=== PATIENT | female | born 1950 | race Caucasian/White ===

== ENCOUNTER 2019-10-25 10:45 | Emergency (ER) | payer MEDICARE, OTHER, SELFPAY ==
--- NOTE | 2019-10-25 10:56 | ED_ITS ---
Entered by Claudia Rodrigues, acting as scribe for Jean-Paul Jones DO HPI - Syncope General: Chief Complaint: Syncope Stated Complaint: SYNCOPE Time Seen by Provider: 10/25/19 10:56 Source: patient and EMS Mode of arrival: EMS Limitations: no limitations History of Present Illness: MD complaint: felt faint, collapsed and other (dizziness) Onset (ago): day(s) (3 days ago) Description of event: other (passed out at [facility]) Prodromal symptoms: shortness of breath and other (dizzy) Witnessed: Yes - by Bystander (people at [facility]) Context: during exertion (at [facility]) Injuries sustained associated with event: none Associated symptoms: Reports other (sweating episodes, stress) Treatments prior to arrival: other (ems brought her to ED) Review of Systems General: Reports: 10 or more systems reviewed and unremarkable except in HPI and below Const: Reports: diaphoresis Eyes: Reports: other (dizziness) Card: Reports: syncope Resp: Reports: shortness of breath (with episode) [facility] ED PFSH: Medical History (Updated 10/25/19 @ 13:53 by Jean-Paul Jones DO) Skin cancer Social History Smoking and tobacco status: never smoked Physical Exam Const: COMMON NORMALS: no apparent distress, average body habitus, oriented x3, no limitations, healthy appearing, alert and well nourished HENMT: COMMON NORMALS: normocephalic, head/scalp atraumatic, hearing grossly normal bilaterally, external ears normal, EAC's normal, TM's normal bilaterally, external nose normal, oropharynx normal, dentition normal and gingiva normal HEAD & SCALP: normocephalic and atraumatic NOSE: external nose normal and mucous membranes and turbinates abnormal (dry) EXTERNAL EAR: Yes external ears normal EXTERNAL AUDITORY CANAL: EAC's normal TYMPANIC MEMBRANE: TM's normal bilaterally Eye: COMMON NORMALS: PERRL, EOMs intact bilaterally, conjunctivae normal, no scleral icterus, no papilledema, normal visual barroso by confrontation and fundi normal bilaterally CONJUNCTIVA: Yes conjunctivae normal PUPIL: Yes PERRL DIRECT OPHTHALMOSCOPY: Yes no papilledema and Yes fundi normal bilaterally Neck/C-Spine: COMMON NORMALS: full ROM, no lymphadenopathy, supple, no meningeal signs, no JVD, thyroid normal and no carotid bruits THYROID: thyroid normal Chest: COMMONS NORMALS: inspection of chest normal and palpation of chest normal Resp: COMMON NORMALS: normal respiratory effort, no retractions, no use of accessory muscles, clear to auscultation bilaterally and percussion normal AUSCULTATION: clear to auscultation bilaterally PERCUSSION: percussion normal Cardio: COMMON NORMALS: no JVD, regular rate, regular rhythm, S1 normal heart sound, S2 normal heart sound, no gallops, no clicks, no murmurs, no rub and peripheral pulses 2+ throughout RATE: regular rate RHYTHM: regular rhythm HEART SOUNDS: S1 normal and S2 normal PERIPHERAL PULSES: pulses 2+ throughout GI: COMMON NORMALS: normal to inspection, nondistended, normoactive bowel sounds, soft to palpation, non-tender, no hepatosplenomegaly, no masses and no bruits PALPATION: Yes soft and Yes no hepatosplenomegaly : COMMON NORMALS: Yes no CVA tenderness and Yes external appearance normal BLADDER/KIDNEY EXAM: Yes no CVA tenderness Back/Pelvis: COMMON NORMALS: no CVA tenderness, thoracic and lumbar spine normal to inspection, no thoracic nor lumbar tenderness, thoraco-lumbar ROM normal and straight leg raise negative bilaterally Extremity: COMMON NORMALS: normal to inspection, full ROM, normal capillary refill, no joint enlargement, no clubbing, cyanosis or edema, no calf tenderness and no pedal edema Neuro: COMMON NORMALS: oriented x3 SENSORIUM/ORIENTATION: Yes alert MENINGEAL SIGNS: Yes no meningeal signs Skin: COMMON NORMALS: no rashes or lesions noted, no wounds, skin turgor normal, no jaundice, no petechiae and no mottling GENERAL SKIN EXAM: no rashes or lesions noted and turgor normal Course Vital Signs: Vital signs: Vital Signs Temperature 97.8 F 10/25/19 10:57 Pulse Rate 62 10/25/19 13:18 Respiratory Rate 15 10/25/19 12:00 Blood Pressure 155/93 10/25/19 13:18 Pulse Oximetry 97 10/25/19 13:18 MDM - Syncope Lab Data: Labs: Lab Results 10/25/19 10/25/19 10/25/19 Range/Units 11:28 11:29 11:29 WBC 7.0 (4.0-10.0) 10^3/ uL RBC 4.87 (4.1-5.3) 10^6/u L Hgb 14.0 (11.5-15.3) g/dL Hct 44.8 (37.0-47.0) % MCV 92.0 (81-99) fL MCH 28.7 (28.0-34.0) pg MCHC 31.3 (30.0-36.0) g/dL RDW 13.8 (12.1-15.1) % Plt Count 202 (130-400) 10^3/c mm MPV 11.0 H (7.4-10.4) fL Neut % (Auto) 53.1 % Lymph % (Auto) 33.8 % Pepin % (Auto) 10.2 % Eos % (Auto) 2.3 % Baso % (Auto) 0.3 % Neut # (Auto) 3.7 (1.8-7.7) 10^3/u L Lymph # (Auto) 2.4 (0.8-4.8) 10^3/u L Pepin # (Auto) 0.7 (0.2-0.9) 10^3/u L Eos # (Auto) 0.2 (0.0-0.8) 10^3/u L Baso # (Auto) 0.0 (0.0-0.1) 10^3/u L Nucleated RBC % (a uto) 0 % Nucleated RBCs # 0.0 /100WBC Sodium 139 (136-145) mmol/L Potassium 4.0 (3.5-5.1) mmol/L Chloride 102 (98-107) mmol/L Carbon Dioxide 26 (22-29) mmol/L Anion Gap 15.0 (5-19) BUN 14 (8-23) mg/dL Creatinine 0.7 (0.5-0.9) mg/dL GFR Calculation 83.2 L (90-130) mL/min Glucose 83 (65-115) mg/dL Lactate (0.5-2.2) mmol/L Calcium 9.6 (8.5-10.5) mg/dL Total Bilirubin 0.3 (0.15-1.2) mg/dL AST 17 (0-32) U/L ALT 14 (0-33) U/L Alkaline Phosphata se 98 (35-105) IU/L Troponin T Baselin e (0-10) ng/mL Troponin T 120 Min [place] (0-10) ng/mL Delta Troponin T (0-10) ABS# Total Protein 6.8 (6.6-8.7) g/dL Albumin 4.1 (3.5-5.2) g/dL Globulin 2.7 (1.3-4.6) g/dL TSH 3.20 (0.27-4.20) uIU/ mL Urine Color Yellow (Yellow) Urine Appearance Clear (CLEAR) Urine pH 7 (5-7) Ur Specific Gravit y 1.010 (1.005-1.030) Urine Protein Neg (Negative) Urine Glucose (UA) Norm (Normal) Urine Ketones Negative (Negative) Urine Blood Neg (Negative) Urine Nitrate Negative (Negative) Urine Bilirubin Neg (NEGATIVE) Urine Urobilinogen Norm (Negative) mg/dL Ur Leukocyte Gillian ase Negative (Negative) 10/25/19 10/25/19 10/25/19 Range/Units 11:29 11:29 13:27 WBC (4.0-10.0) 10^3/ uL RBC (4.1-5.3) 10^6/u L Hgb (11.5-15.3) g/dL Hct (37.0-47.0) % MCV (81-99) fL MCH (28.0-34.0) pg MCHC (30.0-36.0) g/dL RDW (12.1-15.1) % Plt Count (130-400) 10^3/c mm MPV (7.4-10.4) fL Neut % (Auto) % Lymph % (Auto) % Pepin % (Auto) % Eos % (Auto) % Baso % (Auto) % Neut # (Auto) (1.8-7.7) 10^3/u L Lymph # (Auto) (0.8-4.8) 10^3/u L Pepin # (Auto) (0.2-0.9) 10^3/u L Eos # (Auto) (0.0-0.8) 10^3/u L Baso # (Auto) (0.0-0.1) 10^3/u L Nucleated RBC % (a uto) % Nucleated RBCs # /100WBC Sodium (136-145) mmol/L Potassium (3.5-5.1) mmol/L Chloride (98-107) mmol/L Carbon Dioxide (22-29) mmol/L Anion Gap (5-19) BUN (8-23) mg/dL Creatinine (0.5-0.9) mg/dL GFR Calculation (90-130) mL/min Glucose (65-115) mg/dL Lactate 1.0 (0.5-2.2) mmol/L Calcium (8.5-10.5) mg/dL Total Bilirubin (0.15-1.2) mg/dL AST (0-32) U/L ALT (0-33) U/L Alkaline Phosphata se (35-105) IU/L Troponin T Baselin e 9 (0-10) ng/mL Troponin T 120 Min [place] 9.86 (0-10) ng/mL Delta Troponin T 0.86 (0-10) ABS# Total Protein (6.6-8.7) g/dL Albumin (3.5-5.2) g/dL Globulin (1.3-4.6) g/dL TSH (0.27-4.20) uIU/ mL Urine Color (Yellow) Urine Appearance (CLEAR) Urine pH (5-7) Ur Specific Gravit y (1.005-1.030) Urine Protein (Negative) Urine Glucose (UA) (Normal) Urine Ketones (Negative) Urine Blood (Negative) Urine Nitrate (Negative) Urine Bilirubin (NEGATIVE) Urine Urobilinogen (Negative) mg/dL Ur Leukocyte Gillian ase (Negative) Discharge Plan Discharge Patient Disposition: Home, Self-Care Clinical Impression: Near syncope Condition: Stable Prescriptions: No Action metformin 500 mg Tablet 500 mg PO DAILY RF: 0 Tylenol 325 mg Tablet 325 mg PO QID PRN (Reason: Pain) RF: 0 alprazolam 1 mg tablet 1 mg PO DAILY RF: 0 ibuprofen 200 mg Tablet 200 mg PO Q6H PRN (Reason: Pain) RF: 0 Crestor 20 mg Tablet 20 mg PO DAILY RF: 0 Seroquel 50 mg Tablet 50 mg PO DAILY RF: 0 Calcium 500 + D 500 mg(1,250mg) -400 unit Tablet 1 tab PO DAILY RF: 0 Pristiq 50 mg Tablet Extended Release 24 Hr 50 mg PO DAILY RF: 0 Discharge Orders: Discharge Order (Routine); Ordered 10/25/19 Ordered By: Jean-Paul Jones Referrals: Naveen Rossi DO [Family Provider] - Ishan Galvez DO [Primary Care Provider] - Coding Level of Care Code ED Forest Fire Warden for Chg Fwd Exam Comprehensive The documentation recorded by the Ravi pederson Bridget Annette, accurately reflects the service I personally performed and the decisions made by me, Jean-Paul Jones DO Oct 25, 2019 10:45
[2019-10-25 10:57] VITALS: BP 154/87; PULSE 63; RESP 21; TEMP 36.6; O2SAT 96; BMI 28.7
--- NOTE | 2019-10-25 11:05 | CT_ITS ---
WS: [id number] CT HEAD NONCONTRAST HISTORY: syncope TECHNIQUE: Contiguous axial imaging performed through the brain in 2.5 mm imaging. Bone and soft tiss ue windows. Sagittal and coronal reformats reviewed. All CT scans at [facility] use at ast one of these dose optimization techniques: automated exposure control; mA and/or kV adjustment pe r patient size (includes targeted exams where dose is matched to clinical indication); or iterative r econstruction. DLP: 761.89 mGy.cm COMPARISON: None available. No acute intracranial hemorrhage, midline shift or mass effect. No atrophy or prior infarcts or herniation. Mild chronic small vessel ischemic disease. Ventricles: Normal size with no hydrocephalus. Paranasal sinuses: As visualized are clear. Mastoid air cells: Well pneumatized. Calvarium and scalp: Skull is intact with no soft tissue edema or swelling. Scattered calcifications through the supraclinoid carotid arteries. CT/CT head wo con* [id number] IMPRESSION: 1. No acute intracranial hemorrhage or midline shift. 2. Mild chronic microvascular ischemic disease. No prior infarct.
--- NOTE | 2019-10-25 11:05 | XR_ITS ---
WS: [id number] XR chest 1V portable [id number] REASON FOR EXAM: syncope FINDINGS: Eventration of the right hemidiaphragm is noted. The lung barroso are well aerated no pneumonia, pleural effusion, pulmonary edema, or mass effect. Degenerated changes throughout the thoracic spine. The mediastinum and heart are normal. The hilum and apices are normal. XR/XR chest 1V portable [id number] IMPRESSION: Negative chest for active cardiopulmonary disease. Eventration of the right hemidiaphragm.
--- NOTE | 2019-10-25 11:07 | ECG_ITS ---
Measurements Intervals [place] Rate: 63 P: 65 NM: 147 QRS: -39 QRSD: 92 T: 86 QT: 407 QTc: 419 SINUS RHYTHM LEFT AXIS DEVIATION [QRS AXIS < -30] NONSPECIFIC T-WAVE ABNORMALITY Compared to ECG 09/07/2015 11:04:52 Left-axis deviation now present T-wave abnormality still present Electronically Signed On 10-25-2019 13:18:22 COOKER TENDER by Juani Sanz M.D. [id number]
--- NOTE | 2019-10-25 11:24 | PC.NURSE ---
Patient has exited the room and walked to the restroom without notifying anyone. Patient will be educated to not get out of bed without assistance due to her risk of falling.
[2019-10-25] MEDS: sodium chloride 0.9% 1,000 ML 999 ML IV (11:32)
[2019-10-25 11:34] LABS: Add Urine Microscopic? NO
[2019-10-25 11:35] VITALS: BP 151/86; PULSE 63; RESP 14; O2SAT 94
[2019-10-25 11:36] LABS: Basophils % 0.3 %; Eosinophils # 0.2 10^3/uL (0.0-0.8); Eosinophils % 2.3 %; Hematocrit 44.8 % (37.0-47.0); Lymphocytes # 2.4 10^3/uL (0.8-4.8); Lymphocytes % 33.8 %; Mean Corpuscular HGB Conc 31.3 g/dL (30.0-36.0); Mean Corpuscular Hemoglobin 28.7 pg (28.0-34.0); Monocytes # 0.7 10^3/uL (0.2-0.9); Monocytes % 10.2 %; Neutrophils # 3.7 10^3/uL (1.8-7.7); Neutrophils % 53.1 %; Nucleated Red Blood Cells % 0 %; Platelet Count 202 10^3/cmm (130-400); Red Blood Count 4.87 10^6/uL (4.1-5.3); Red Cell Distribution Width 13.8 % (12.1-15.1)
[2019-10-25 11:38] LABS: Bilirubin Urine Neg (NEGATIVE); Blood Urine Neg (Negative); Glucose Urine UA Norm (Normal); Ketones Urine Negative (Negative); Leukocyte Esterase Urine Negative (Negative); Nitrate Urine Negative (Negative); Protein Urine Neg (Negative); Urine Appearance Clear (CLEAR); Urine Color Yellow (Yellow); Urobilinogen Urine Norm (Negative); pH Urine 7 (5-7)
[2019-10-25 11:54] LABS: Troponin(5th) Baseline 9 ng/mL (0-10)
--- NOTE | 2019-10-25 11:55 | PC.NURSE ---
Warm blankets provided. No needs
--- NOTE | 2019-10-25 11:56 | PC.NURSE ---
PHYSICAL ASSESSMENT Chief Complaint: Near syncope GENERAL / NEURO / PSYCH: Alert and oriented x 4 MARTIN COMA SCORE: 15 HEENT: No facial asymmetry noted. Mucous membranes are pink. RESPIRATORY: Denies complaints CVS: Capillary refill less than 2 seconds. Pulses within normal limits. GI / : Abdomen soft and nontender and normal bowel sounds. SKIN: Skin intact. Skin is warm and dry. Normal skin turgor. - Patient resting at this time. No needs.
[2019-10-25 12:00] VITALS: BP 176/101; PULSE 64; RESP 15; O2SAT 97
[2019-10-25 12:00] LABS: Alanine Aminotransferase 14 U/L (0-33); Albumin Level 4.1 g/dL (3.5-5.2); Alkaline Phosphatase 98 IU/L (35-105); Blood Urea Nitrogen 14 mg/dL (8-23); Calcium 9.6 mg/dL (8.5-10.5); Carbon Dioxide 26 mmol/L (22-29); Chloride 102 mmol/L (98-107); Globulin 2.7 g/dL (1.3-4.6); Glomerular Filtration Rate 83.2 mL/min (90-130); Glucose 83 mg/dL (65-115); Sodium 139 mmol/L (136-145); Total Bilirubin 0.3 mg/dL (0.15-1.2); Total Protein 6.8 g/dL (6.6-8.7)
[2019-10-25 12:07] LABS: Aspartate Amino Transferase 17 U/L (0-32)
--- NOTE | 2019-10-25 13:07 | ECG_ITS ---
Measurements Intervals [place] Rate: 61 P: 64 CT: 142 QRS: -18 QRSD: 94 T: 87 QT: 434 QTc: 439 SINUS RHYTHM NONSPECIFIC T-WAVE ABNORMALITY Compared to ECG 09/07/2015 11:04:52 No significant changes Electronically Signed On 10-25-2019 13:21:48 OVERLOCK HEMMER by Juani Sanz M.D. [id number]
[2019-10-25 13:18] VITALS: BP 155/93; PULSE 62; O2SAT 97
[2019-10-25 13:50] LABS: Troponin 5 2HR 9.86 ng/mL (0-10); Troponin 5 2HR Delta 0.86 ABS# (0-10)
[2019-10-25 14:01] VITALS: BP 153/93; PULSE 78; RESP 16; O2SAT 97
== END 2019-10-25 14:01 | disposition home or self-care (01) ==
PROVIDERS: Emergency Provider Family Medicine; Family Provider Electrodiagnostic Medicine; PCP Internal Medicine
DX: R55 Syncope and collapse (principal)
CPT/HCPCS: 36415; 70450; 71045; 80053; 81003; 83605; 84443; 84484; 85025; 93005; 96360; 99282; 99284; J7030

== ENCOUNTER 2020-03-08 15:22 | Outpatient (CLI) | payer MEDICARE, SELFPAY ==
--- NOTE | 2020-03-08 15:34 | MM_ITS ---
WS: [id number] BILATERAL DIGITAL SCREENING MAMMOGRAPHY WITH CAD CLINICAL INFORMATION: SCREEN HISTORY: Screening mammogram. No current complaints. COMPARISON: TECHNIQUE: Bilateral CC and MLO views. FINDINGS: The breasts are composed of heterogeneous fibroglandular density tissue, which can limit the detectio n of small underlying mass lesions. No suspicious mass, asymmetry, calcifications, or architectural d istortion. No evidence of malignancy. Lucent centered calcifications. Eggshell calcifications. MM/[place] [id number] IMPRESSION: BI-RADS: 2-Benign FOLLOW UP: 1 Year Follow-up Recommend return to annual screening mammography.
== END 2020-03-08 15:23 | disposition home or self-care (01) ==
LOC: RADSHAW 15:30
PROVIDERS: PCP Electrodiagnostic Medicine; Visit Provider Electrodiagnostic Medicine
DX: Z12.31 Encounter for screening mammogram for malignant neoplasm of breast (principal)
CPT/HCPCS: 77067

== ENCOUNTER 2020-04-09 13:30 | Outpatient (CLI) | payer MEDICARE, SELFPAY ==
--- NOTE | 2020-04-09 13:37 | XR_ITS ---
WS: [id number] KNEE RIGHT TECHNIQUE: 3 views of the right knee CLINICAL INFORMATION: KNEE PAIN RIGHT ACUTE COMPARISON: None. FINDINGS: Normal anatomic alignment. No evidence of acute fracture dislocation. Soft tissue edema. Moderate sup rapatellar effusion. Hypertrophic patella. XR/XR knee RT 3V* [id number] IMPRESSION: 1. Soft tissue edema. Moderate suprapatellar effusion. 2. Slightly hypertrophic patella. 3. No acute fractures.
== END 2020-04-09 13:31 | disposition home or self-care (01) ==
LOC: RADWPI 13:35
PROVIDERS: Family Provider Electrodiagnostic Medicine; PCP Electrodiagnostic Medicine; Visit Provider Electrodiagnostic Medicine
DX: M25.561 Pain in right knee (principal); R60.0 Localized edema; M25.461 Effusion, right knee
CPT/HCPCS: 73562

== ENCOUNTER 2020-05-02 10:40 | Outpatient (CLI) | payer MEDICARE, SELFPAY ==
--- NOTE | 2020-05-02 10:50 | MR_ITS ---
WS: [id number] MRI RIGHT KNEE HISTORY: RIGHT MEDIAL MENISCUS TEAR/ACUTE RIGHT KNEE PAIN COMPARISON: Knee radiograph 04/09/2020 Anterior cruciate ligament: Intact. Posterior cruciate ligament: Intact. Medial collateral ligament: Increased T2 signal both sides of the medial collateral ligament. There i s also increased T2 signal in the ligament with partial separation distally from the tibia. Posterior lateral corner structures: Intact. Medial menisci: Abnormal signal in the posterior horn towards the meniscal root. Shape of the meniscu s is abnormal uncomplicated towards the meniscal root. Lateral meniscus: Intact. Normal signal, size and shape. Extensor mechanism: Distal quadriceps tendon and patellar tendons are intact. Fluid and soft tissue: Moderate-sized suprapatellar joint effusion. There is additional soft tissue e misha which is mild surrounding the knee. Small Bright's cyst extends over length of 2 cm. Osseous and articular structures: Patellofemoral compartment: Normal. Medial compartment: Moderate narrowing medial compartment. There is loss of cartilage with near bone upon bone. There is increased marrow edema along nearly the entire medial tibial plateau and extendin g across the midline. Small osteochondral lesion measuring 8 mm in the posterior medial femoral condy le. Lateral compartment: Mild joint space narrowing. Small amount of edema in the tibial metaphysis. MR/MR knee RT wo con* [id number] IMPRESSION: 1. Marrow edema along the medial tibial metaphysis with extension across the m idline to the lateral tibial plateau. No fracture. 2. Moderate internal derangement medial compartment with loss of cartilage, rey int space narrowing and meniscal tear involving the root of the posterior horn. 3. Moderate suprapatellar joint effusion and small Bright's cyst. 4. Moderate sprain MCL.
== END 2020-05-02 10:41 | disposition home or self-care (01) ==
LOC: RADWPI 10:41
PROVIDERS: Family Provider Electrodiagnostic Medicine; PCP Electrodiagnostic Medicine; Visit Provider Electrodiagnostic Medicine
DX: S83.241A Other tear of medial meniscus, current injury, right knee, initial encounter (principal); S83.411A Sprain of medial collateral ligament of right knee, initial encounter; X58.XXXA Exposure to other specified factors, initial encounter; R60.0 Localized edema; M25.461 Effusion, right knee; M71.21 Synovial cyst of popliteal space [Baker], right knee
CPT/HCPCS: 73721

== ENCOUNTER 2021-07-02 09:52 | Outpatient (CLI) | payer MEDICARE, SELFPAY ==
--- NOTE | 2021-07-02 10:07 | MM_ITS ---
WS: [id number] BILATERAL DIGITAL SCREENING MAMMOGRAPHY WITH CAD CLINICAL INFORMATION: SCREENING FOR MLIG NEOP BREAST HISTORY: Screening mammogram. No current complaints. COMPARISON: March 08, 2020 TECHNIQUE: Bilateral CC and MLO views. FINDINGS: Scattered fibroglandular densities bilaterally. Punctate and lucent center calcifications. Biopsy mar ker right breast. No suspicious focal mass, asymmetry, calcifications, or architectural distortion. N o evidence of malignancy. MM/[place] [id number] IMPRESSION: BI-RADS: 2-Benign FOLLOW UP: 1 Year Follow-up Recommend return to annual screening mammography.
== END 2021-07-02 09:53 | disposition home or self-care (01) ==
LOC: RADSHAW 10:00
PROVIDERS: PCP Electrodiagnostic Medicine; Visit Provider Electrodiagnostic Medicine
DX: Z12.31 Encounter for screening mammogram for malignant neoplasm of breast (principal)
CPT/HCPCS: 77067

== ENCOUNTER → 2021-09-17 11:38 | Outpatient (BNVA) | payer MEDICARE, SELFPAY | PROVIDERS: PCP Electrodiagnostic Medicine; Visit Provider Obstetrics & Gynecology | DX: N90.4 Leukoplakia of vulva (principal) | CPT/HCPCS: 88305 ==

== ENCOUNTER 2022-02-15 19:38 | Emergency (ER) | payer MEDICARE, SELFPAY ==
[2022-02-15 19:55] VITALS: BP 167/92; PULSE 81; RESP 14; TEMP 37.1; O2SAT 96; BMI 29.9
--- NOTE | 2022-02-15 20:17 | ECG_ITS ---
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 Measurements Intervals [place] Rate: 80 P: 106 KS: 151 QRS: -3 QRSD: 88 T: 139 QT: 350 QTc: 404 Interpretive Statements SINUS RHYTHM WITH OCCASIONAL SUPRAVENTRICULAR PREMATURE COMPLEXES POSSIBLE LEFT ATRIAL ENLARGEMENT [-0.1mV P-WAVE IN V1/V2] SEPTAL MYOCARDIAL INFARCTION , OF INDETERMINATE AGE [40+ ms Q WAVE IN V1/V2] MODERATE T-WAVE ABNORMALITY, CONSIDER LATERAL ISCHEMIA [-0.1+ mV T-WAVE IN I/aVL/V5/V6] Compared to ECG 10/25/2019 13:14:02 Myocardial infarct finding now present Possible ischemia now present T-wave abnormality still present Electronically Signed On 02-16-2022 12:29:37 CDT by Ashok Field M.D. [id number]
--- NOTE | 2022-02-15 20:17 | XRR_ITS ---
PROCEDURE INFORMATION: Exam: XR Chest Exam date and time: 02/15/2022 11:56 PM Age: 71 years old Clinical indication: Other: Palp TECHNIQUE: Imaging protocol: Radiologic exam of the chest. Views: 1 view. COMPARISON: CR XR chest 1V portable [id number] 10/25/2019 11:06 AM FINDINGS: Lungs: Unremarkable. No consolidation. Pleural spaces: Unremarkable. No pleural effusion. No pneumothorax. Heart/Mediastinum: Unremarkable. No cardiomegaly. Bones/joints: Moderate thoracic spondylosis. XR/XR chest 1V portable [id number] IMPRESSION: No acute findings.
[2022-02-16 00:07] LABS: Basophils % 0.6 %; Eosinophils # 0.2 10^3/uL (0.0-0.8); Eosinophils % 2.4 %; Hematocrit 45.3 % (37.0-47.0); Hemoglobin 14.6 g/dL (11.5-15.3); Lymphocytes # 2.1 10^3/uL (0.8-4.8); Lymphocytes % 31.7 %; Mean Corpuscular HGB Conc 32.2 g/dL (30.0-36.0); Mean Corpuscular Hemoglobin 27.4 pg (28.0-34.0); Mean Platelet Volume 10.4 fL (7.4-10.4); Monocytes # 0.7 10^3/uL (0.2-0.9); Monocytes % 11.1 %; Neutrophils # 3.53 10^3/uL (1.8-7.7); Neutrophils % 53.9 %; Nucleated Red Blood Cells % 0 %; Platelet Count 217 10^3/cmm (130-400); Red Blood Count 5.33 10^6/uL (4.1-5.3); Red Cell Distribution Width 13.5 % (12.1-15.1); White Blood Count 6.6 10^3/uL (4.0-10.0)
[2022-02-16 00:13] VITALS: BP 175/80; PULSE 65; RESP 18; O2SAT 95
[2022-02-16 00:26] LABS: Blood Urea Nitrogen 16 mg/dL (8-23); Calcium 9.2 mg/dL (8.5-10.5); Carbon Dioxide 24 mmol/L (22-29); Chloride 102 mmol/L (98-107); Glucose 113 mg/dL (65-115); Magnesium 2.3 mg/dL (1.7-2.3); Osmolality Calculated 290 mOsm/kg (285-295); Sodium 139 mmol/L (136-145)
[2022-02-16 00:27] LABS: Troponin(5th) Baseline 7 ng/L (0-10)
[2022-02-16 00:28] LABS: Creatinine Clr Calc Pharmacy 50.5879
[2022-02-16 01:58] VITALS: BP 154/75
[2022-02-16 02:13] VITALS: BP 168/87; PULSE 70; RESP 16; O2SAT 97
--- NOTE | 2022-02-16 15:53 | ED_ITS ---
HPI - Arrhythmia/Palpitations General: Chief Complaint: Arrhythmia/Palpitations Stated Complaint: irregular heartbeat Time Seen by Provider: 02/15/22 23:54 Source: patient History of Present Illness: 71 year old female with no history of prior coronary disease. She complaints of palpitations. She was at a preoperative visit for her total knee replacement which is coming this week. They noticed that she had several PVCS. She is symptomatic with these. she saw her doctor, and none were seen on EKG there. She started to have more this weekend, and was sent here by her physician. She denies any overt chest pain. She denies shortness of breath. No fever, cough, diarrhea, or vomiting. MD complaint: skipped beats and palpitations Duration: intermittent Context: occurred during rest Arrhythmia history: other Associated symptoms: Deny anxiety, cough, diaphoresis, muscle cramps, nausea, short of breath, syncope or vomiting Treatments prior to arrival: other Review of Systems Const: Denies: fever(s), chills or diaphoresis Eyes: Denies: change in vision ENMT: Denies: throat pain Card: Reports: palpitations and irregular heart rhythm; Denies: chest pain, swelling of feet/ankles or syncope GI: Denies: nausea or vomiting Musc: Reports: joint pain; Denies: back pain or muscle cramps Neuro: Denies: dizziness Psych: Denies: anxiety [facility] ED PFSH: Medical History (Updated 02/16/22 @ 01:49 by Zaheer Millan DO) Psychiatric care Skin cancer Family History Family/Other Diabetes paternal uncle and cousins Grandfather Diabetes paternal Stroke paternal Mother Hyperlipidemia Thyroid condition Father Hypertension Heart disease Son Hypertension Sister Thyroid condition Denies family history of Colon cancer Ovarian cancer Clotting disorder Breast cancer Anesthesia complication Bleeding disorder Uterine cancer Social History Smoking and tobacco status: never smoked Physical Exam Const: COMMON NORMALS: no acute distress GENERAL APPEARANCE: cooperative and well developed; not ill appearing and not frail appearing HENMT: COMMON NORMALS: normocephalic and atraumatic HEAD & SCALP: normocephalic and atraumatic Eye: COMMON NORMALS: Equal, round and reactive pupils present and EOMs intact bilaterally PUPIL: Yes Equal, round and reactive pupils present Neck/C-Spine: GENERAL: Yes trachea midline Chest: CHEST: Yes Symmetrical chest wall rise Cardio: COMMON NORMALS: regular rate and regular rhythm RATE: regular rate RHYTHM: regular rhythm GI: COMMON NORMALS: Normal to inspection, nondistended, normoactive bowel so unds present Extremity: COMMON NORMALS: no pedal edema Neuro: MARTIN COMA SCALE: document GCS findings [place] coma scale eye opening: Spontaneous [place] coma scale verbal response: Orientated [place] coma scale motor response: Obey commands [place] coma scale total score: 15 Course Vital Signs: Vital signs: Vital Signs Temperature 98.7 F 02/15/22 19:55 Pulse Rate 70 02/16/22 02:13 Respiratory Rate 16 02/16/22 02:13 Blood Pressure 168/87 02/16/22 02:13 Pulse Oximetry 97 02/16/22 02:13 MDM - Arrhythmia/Palpitations Medical Decision Making EKG shows a normal sinus rhythm with no arrhythmias. There are no acute St changes. Her Trop is negative. Her chest X ray is negative. Other laboratory is benign. She is throwing several PVCS on the monitor, and she is symptomatic with these. We will attempt treatment with metroprolol if she wishes. She will follow up with her doctor later today By phone. She is scheduled for her knee replacement on Thursday, and as these are nonischemic, and she has normal electrolytes, I would not foresee this delaying her arthroplasty. Lab Data : 02/16/22 00:01 02/16/22 00:01 Radiology Impressions Chest X-Ray 02/15/22 20:17 IMPRESSION: No acute findings. Laboratory Results WBC 6.6 10^3/uL (4.0-10.0) 02/16/22 00:01 RBC 5.33 10^6/uL (4.1-5.3) H 02/16/22 00:01 Hgb 14.6 g/dL (11.5-15.3) 02/16/22 00:01 Hct 45.3 % (37.0-47.0) 02/16/22 00:01 MCV 85.0 fl (81-99) 02/16/22 00:01 MCH 27.4 pg (28.0-34.0) L 02/16/22 00:01 MCHC 32.2 g/dL (30.0-36.0) 02/16/22 00:01 RDW 13.5 % (12.1-15.1) 02/16/22 00:01 Plt Count 217 10^3/cmm (130-400) 02/16/22 00:01 MPV 10.4 fL (7.4-10.4) 02/16/22 00:01 Neut % (Auto) 53.9 % 02/16/22 00:01 Lymph % (Auto) 31.7 % 02/16/22 00:01 [place] % (Auto) 11.1 % 02/16/22 00:01 Eos % (Auto) 2.4 % 02/16/22 00:01 Baso % (Auto) 0.6 % 02/16/22 00:01 Neut # (Auto) 3.53 10^3/uL (1.8-7.7) 02/16/22 00:01 Lymph # (Auto) 2.1 10^3/uL (0.8-4.8) 02/16/22 00:01 [place]rie # (Auto) 0.7 10^3/uL (0.2-0.9) 02/16/22 00:01 Eos # (Auto) 0.2 10^3/uL (0.0-0.8) 02/16/22 00:01 Baso # (Auto) 0.0 10^3/uL (0.0-0.1) 02/16/22 00:01 Nucleated RBC % (auto) 0 % 02/16/22 00:01 Nucleated RBCs # 0.0 /100WBC 02/16/22 00:01 Sodium 139 mmol/L (136-145) 02/16/22 00:01 Potassium 4.0 mmol/L (3.5-5.1) 02/16/22 00:01 Chloride 102 mmol/L (98-107) 02/16/22 00:01 Carbon Dioxide 24 mmol/L (22-29) 02/16/22 00:01 Anion Gap 17.0 (5-19) 02/16/22 00:01 BUN 16 mg/dL (8-23) 02/16/22 00:01 Creatinine 1.0 mg/dL (0.5-0.9) H 02/16/22 00:01 GFR Calculation Not Reportable 02/16/22 00:01 Glucose 113 mg/dL (65-115) 02/16/22 00:01 Calculated Osmolality 290 mOsm/kg (285-295) 02/16/22 00:01 Calcium 9.2 mg/dL (8.5-10.5) 02/16/22 00:01 Magnesium 2.3 mg/dL (1.7-2.3) 02/16/22 00:01 Troponin T Baseline 7 ng/L (0-10) 02/16/22 00:01 Discharge Plan Discharge Patient Disposition: Home Clinical Impression: Ventricular premature beats Condition: Stable Prescriptions: New metoprolol tartrate 25 mg tablet 12.5 mg PO BID Qty: 60 0RF No Action duloxetine 60 mg capsule,delayed release(DR/EC) 60 mg PO 0RF furosemide 20 mg tablet PO 0RF levothyroxine 50 mcg tablet PO 0RF metformin 500 mg tablet extended release 24 hr 500 mg PO 0RF omeprazole 40 mg capsule,delayed release(DR/EC) PO 0RF hydrocodone-acetaminophen 7.5-325 mg tablet 1 tab PO Q6H PRN0RF clobetasol 0.05 % ointment 1 applic topical DAILY Qty: 60 3RF Tylenol 325 mg Tablet 325 mg PO QID PRN (Reason: Pain) 0RF alprazolam 1 mg tablet 1 mg PO DAILY 0RF Crestor 20 mg Tablet 20 mg PO DAILY 0RF Seroquel 50 mg Tablet 50 mg PO DAILY 0RF ibuprofen 200 mg tablet 800 mg PO Q6H PRN (Reason: Pain) 0RF Discharge Orders: Discharge ED (Routine); Ordered 02/16/22 Ordered By: Zaheer Millan Referrals: Naveen Rossi DO [Primary Care Provider] - 1-3 days Discharge Diet: Advance as tolerated Discharge Activity: Increase activity as tolerated Patient Instructions: Premature Ventricular Contractions (ED) Activity Restrictions/Additional Instructions: If you would like, you may give yourself a medication trial to see if it reduces the frequency of your PVCs. Follow-up with your doctor early this coming week. Return for chest discomfort, fever, shortness of breath, any other concerning symptoms. Coding Level of Care Code ED Diesel Power Mechanic for Jaclyn Barreto
== END 2022-02-16 02:13 | disposition home or self-care (01) ==
PROVIDERS: Emergency Medicine; Emergency Provider Emergency Medicine; PCP Electrodiagnostic Medicine
DX: I49.3 Ventricular premature depolarization (principal); Z79.84 Long term (current) use of oral hypoglycemic drugs
CPT/HCPCS: 71045; 80048; 83735; 84484; 85025; 93005; 99284

== ENCOUNTER 2022-04-14 08:25 | Outpatient (RCR) | payer MEDICARE, SELFPAY | END 2022-04-23 23:59 | disposition home or self-care (01) | LOC: SPT 08:25 | PROVIDERS: PCP Electrodiagnostic Medicine; Visit Provider Physician Assistant | DX: Z98.890 Other specified postprocedural states (principal) | CPT/HCPCS: 97110; 97161 ==

== ENCOUNTER 2022-04-24 06:00 | Outpatient (RCR) | payer MEDICARE, SELFPAY | END 2022-05-23 23:59 | disposition home or self-care (01) | LOC: SPT 06:00 | PROVIDERS: PCP Electrodiagnostic Medicine; Visit Provider Physician Assistant | DX: Z98.890 Other specified postprocedural states (principal) | CPT/HCPCS: 97110 ==

== ENCOUNTER 2022-08-13 08:17 | Outpatient (CLI) | payer MEDICARE, SELFPAY ==
--- NOTE | 2022-08-13 08:25 | MM_ITS ---
WS: [email or web address] VIEWS: MLO and CC views both breasts. 3D digital tomosynthesis is also included in this exam. Comparison made with prior exam of 04/11/2013, 04/25/2014, 06/23/2017, 06/23/2018, 03/08/2020, 07/02/2021. . Findings: There was no sign of mass, architectural distortion or suspicious calcification in either breast. Sc attered fibroglandular densities MM/[place] [id number] Impression: BI-RADS: 2-Benign FOLLOW-UP: 1 Year Follow-up This mammogram was also analyzed by the Computer Aided Detection System R2 Imag e Stone Repairer.
== END 2022-08-13 08:18 | disposition home or self-care (01) ==
PROVIDERS: PCP Electrodiagnostic Medicine; Visit Provider Electrodiagnostic Medicine
DX: Z12.31 Encounter for screening mammogram for malignant neoplasm of breast (principal)
CPT/HCPCS: 77063; 77067

== ENCOUNTER 2022-09-29 13:14 | Outpatient (RCR) | payer MEDICARE, SELFPAY | END 2022-10-21 23:59 | disposition home or self-care (01) | LOC: SPT 13:14 | PROVIDERS: PCP Electrodiagnostic Medicine; Visit Provider Orthopaedic Surgery | DX: Z47.1 Aftercare following joint replacement surgery (principal); Z96.651 Presence of right artificial knee joint | CPT/HCPCS: 97110; 97161; 97530 ==

== ENCOUNTER 2022-10-22 06:00 | Outpatient (RCR) | payer MEDICARE, SELFPAY | END 2022-11-14 23:59 | disposition home or self-care (01) | LOC: SPT 06:00 | PROVIDERS: PCP Electrodiagnostic Medicine; Visit Provider Orthopaedic Surgery | DX: Z47.1 Aftercare following joint replacement surgery (principal); Z89.511 Acquired absence of right leg below knee | CPT/HCPCS: 97110 ==

== ENCOUNTER 2023-03-04 10:27 | Outpatient (RCR) | payer MEDICARE, SELFPAY | END 2023-03-23 23:59 | disposition home or self-care (01) | LOC: SPT 10:27 | PROVIDERS: PCP Electrodiagnostic Medicine; Visit Provider Electrodiagnostic Medicine | DX: M75.101 Unspecified rotator cuff tear or rupture of right shoulder, not specified as traumatic (principal) | CPT/HCPCS: 97110; 97161 ==

== ENCOUNTER 2023-03-24 06:00 | Outpatient (RCR) | payer MEDICARE, SELFPAY | END 2023-04-23 23:59 | disposition home or self-care (01) | LOC: SPT 06:00 | PROVIDERS: PCP Electrodiagnostic Medicine; Visit Provider Electrodiagnostic Medicine | DX: M75.101 Unspecified rotator cuff tear or rupture of right shoulder, not specified as traumatic (principal) | CPT/HCPCS: 97110 ==

== ENCOUNTER 2023-08-14 09:42 | Outpatient (CLI) | payer MEDICARE, SELFPAY ==
--- NOTE | 2023-08-14 09:45 | MM_ITS ---
WS: [email or web address] BILATERAL SCREENING DIGITAL TOMOSYNTHESIS MAMMOGRAM WITH CAD HISTORY: SCREENING COMPARISON: 08/13/2022 and 07/02/2021 Bilateral CC and MLO views with tomosynthesis and synthetic mammography submitted. Computer aided det ection analyzed. Breast composition: There are scattered areas of fibroglandular density. No suspicious masses, microc alcifications or architectural distortion. Benign calcifications in each breast. Biopsy clip in the R IGHT breast. IMPRESSION: MM/[place] [id number] BI-RADS: 2-Benign FOLLOW UP: 1 Year Follow-up
== END 2023-08-14 09:43 | disposition home or self-care (01) ==
LOC: RAD 09:42
PROVIDERS: PCP Electrodiagnostic Medicine; Visit Provider Electrodiagnostic Medicine
DX: Z12.31 Encounter for screening mammogram for malignant neoplasm of breast (principal)
CPT/HCPCS: 77063; 77067

== ENCOUNTER 2023-12-31 06:00 | Outpatient (RCR) | payer MEDICARE, SELFPAY | END 2024-01-22 23:59 | disposition home or self-care (01) | LOC: SPT 06:00 | PROVIDERS: Visit Provider Electrodiagnostic Medicine | DX: M54.50 Low back pain, unspecified (principal) | CPT/HCPCS: 97110; 97161 ==

== ENCOUNTER 2024-01-23 06:00 | Outpatient (RCR) | payer MEDICARE, SELFPAY | END 2024-02-02 10:49 | disposition home or self-care (01) | LOC: SPT 06:00 | PROVIDERS: Visit Provider Electrodiagnostic Medicine | DX: M54.50 Low back pain, unspecified (principal) | CPT/HCPCS: 97110 ==

== ENCOUNTER → 2024-02-04 13:55 | Outpatient (BNVA) | payer MEDICARE, SELFPAY | PROVIDERS: Visit Provider Podiatrist Foot & Ankle Surgery | DX: M72.2 Plantar fascial fibromatosis; E11.9 Type 2 diabetes mellitus without complications; Z79.84 Long term (current) use of oral hypoglycemic drugs | CPT/HCPCS: 99203 ==

== ENCOUNTER 2024-02-18 12:15 | Outpatient (CLI) | payer MEDICARE, SELFPAY ==
--- NOTE | 2024-02-18 12:28 | MR_ITS ---
WS: [email or web address] MRI LUMBAR SPINE NONCONTRAST HISTORY: INTERVERTEBRAL DISC DISORDER COMPARISON: None available. TECHNIQUE: Sagittal and axial multisequence imaging is submitted. Advanced degenerative disc disease in the cervical and thoracic spine. L4 anterolisthesis by 5 mm. Disc spaces are moderately narrowed and desiccated. Hypertrophic endplate changes with chronic and acute marrow signal changes. Acute marrow signal changes are in T12, L1 and L2. No acute fracture. Conus terminates normally at L1-2 disc level. L1-L2: Diffuse annular disc bulging and facet arthritis. Mild foraminal stenosis. L2-L3: Diffuse annular disc bulging and facet joint arthritis. Fluid in the facet joints. Mild RIGHT foraminal stenosis. L3-L4: Mild annular disc bulging with moderate ligamentum flavum and facet arthritis. Asymmetric disc bulging into the LEFT foramen. Mild bilateral subarticular recess and mild to moderate foraminal alcon nosis. L4-L5: Mild annular disc bulging with marked facet and ligamentum flavum hypertrophy. Fluid in the fa cet joints. Encroachment upon the central canal and subarticular recesses. Mild to moderate central, bilateral subarticular recess and foraminal stenosis. Disc encroachment upon the traversing L5 nerve roots. L5-S1: Mild annular disc bulging with a broad-based LEFT foraminal disc protrusion. Mild facet and li gamentum flavum hypertrophy. Mild encroachment upon the S1 nerve roots. Mild subarticular recess and foraminal narrowing. Mild bilateral psoas muscle atrophy. MR/MR lumbar spine wo con* [id number] IMPRESSION: 1. Advanced degenerative disc disease and spondylosis throughout the lumbar sp ine. 2. Grade 1 anterolisthesis of L4. 3. Chronic and acute endplate changes in the lumbar spine. Acute marrow edema at T12, L1 and L2 involving the adjacent endplates. 4. L4-5: Mild to moderate central with bilateral subarticular recess and divya inal stenosis. Disc encroachment upon the traversing L5 nerve roots. 5. L5-S1: Mild disc encroachment upon the S1 nerve roots with mild subarticula r recess and foraminal stenosis. 6. L1-2 and L2-3, mild foraminal stenosis as above. 7. L3-4: Mild bilateral subarticular recess and mild to moderate foraminal alcon nosis.
== END 2024-02-18 12:16 | disposition home or self-care (01) ==
LOC: RAD 12:18
PROVIDERS: Visit Provider Electrodiagnostic Medicine
DX: M51.06 Intervertebral disc disorders with myelopathy, lumbar region (principal); M51.36 Other intervertebral disc degeneration, lumbar region; M47.896 Other spondylosis, lumbar region; M43.16 Spondylolisthesis, lumbar region; M99.63 Osseous and subluxation stenosis of intervertebral foramina of lumbar region
CPT/HCPCS: 72148

== ENCOUNTER → 2024-03-04 11:09 | Outpatient (BNVA) | payer MEDICARE, SELFPAY | PROVIDERS: Visit Provider Podiatrist Foot & Ankle Surgery | DX: M72.2 Plantar fascial fibromatosis (principal); E11.9 Type 2 diabetes mellitus without complications; Z79.84 Long term (current) use of oral hypoglycemic drugs | CPT/HCPCS: 99213 ==

== ENCOUNTER 2024-03-22 13:04 | Outpatient (CLI) | payer MEDICARE, SELFPAY ==
--- NOTE | 2024-03-22 13:11 | XR_ITS ---
WS: [email or web address] SCREENING DEXA SCAN [employer] CLINICAL INFORMATION: POSTMENOPAUSAL COMPARISON: 2014 FINDINGS: The L1-L4 bone mineral density measures 1.282 g/cm2. This corresponds to a T score score of 0.8 and Z score of 2.1. Left femoral neck bone mineral density measures 0.870 g/cm2. This corresponds to a T score of -1.1 an d Z score of 0.2. Right femoral neck bone mineral density measures 0.867 g/cm2. This corresponds to a T score -1.1of an d Z score of 0.2. Mean femoral neck bone mineral density measures 0.868 g/cm2. This corresponds to a T score of -1.1 an d Z score of 0.2. XR/XR DEXA axial skeleton* [id number] IMPRESSION: Normal bone mineralization lumbar spine. Osteopenia femoral necks. Patient's FRAX calculated 10 year probability for major osteoporotic fracture i s 21.2% and osteoporotic hip fracture is 5.3%. Bone mineral density lumbar spine increased 8.2% Bone mineral density femoral necks decreased -9.9%
== END 2024-03-22 13:05 | disposition home or self-care (01) ==
LOC: RAD 13:05
PROVIDERS: PCP Electrodiagnostic Medicine; Visit Provider Electrodiagnostic Medicine
DX: Z78.0 Asymptomatic menopausal state (principal)
CPT/HCPCS: 77080

== ENCOUNTER 2024-07-11 13:25 | Outpatient (CLI) | payer MEDICARE, SELFPAY ==
--- NOTE | 2024-07-11 13:29 | USCV_ITS ---
Tylor Gilbert Age: 73 Gender: F : 1950 Exam Date: 07/11/2024 13:49 Ordering Phys: Naveen Rossi DO Technologist: CT Exam Location: [facility] Indication: murmur BP: 138 / 80 HR: 79 Rhythm: Sinus Technical Quality: Adequate MEASUREMENTS (Male / Female) Normal Values 2D ECHO LVOT Diameter 2.0 cm LV Ejection Fraction MOD 4C 67.8 % LV Ejection Fraction MOD 2C 65.8 % LV Ejection Fraction 2C AL 63.9 % LA Diameter 3.2 cm RA Systolic Volume 4C AL 37.5 ml RA Systolic Volume 4C MOD 36.7 ml LA Sys Volume AL 52.8 cm cubed LA Sys Volume Index AL 28.1 cm cubed/m squared Aorta at Sinotubular Diameter 2.2 cm M-MODE LA Ao Ratio MM 1.7 AV Cusp Separation MM 1.8 cm DOPPLER AV Peak Velocity 176.0 cm/s LVOT Peak Velocity 121.0 cm/s AV Area Cont Eq vti 2.3 cm squared AV Area Cont Eq pk 2.2 cm squared MV Peak Velocity 85.0 cm/s MV Area PHT 4.0 cm squared Mitral E to A Ratio 0.9 TV Peak Velocity 322.5 cm/s TR Peak Velocity 345.0 cm/s TR Peak Gradient 47.6 mmHg TV Peak E Velocity 86.0 cm/s Right Atrial Pressure 3.0 mmHg Pulmonary Artery Systolic Pressu 50.6 mmHg PV Peak Velocity 116.0 cm/s FINDINGS Left Ventricle Normal left ventricular size, systolic function and wall thickness, with no regional wall motion abnormalities. Left ventricular ejection fraction is estimated at 60 %. Grade I/IV diastolic dysfunction (abnormal relaxation filling pattern), normal to mildly elevated filling pressures. Right Ventricle The right ventricle is normal in size and function. Right Atrium The right atrium is normal in size. Left Atrium The left atrium is normal in size. Mitral Valve Structurally normal mitral valve without significant stenosis or prolapse. There is no mitral regurgitation. Aortic Valve Moderate aortic valve calcification. No aortic valve stenosis. Trace aortic valve regurgitation. Tricuspid Valve Structurally normal tricuspid valve without significant stenosis or regurgitation. Pulmonary artery systolic pressure is normal. Pulmonic Valve Structurally normal pulmonic valve without significant stenosis. There is no pulmonic regurgitation. Pericardium Normal pericardium without effusion. Aorta Normal ascending aorta dimension. IVC The inferior vena cava appears normal. CONCLUSIONS Normal left ventricular size, systolic function and wall thickness, with no regional wall motion abnormalities. Left ventricular ejection fraction is estimated at 60 %. Grade I/IV diastolic dysfunction (abnormal relaxation filling pattern), normal to mildly elevated filling pressures. Moderate aortic valve calcification. No aortic valve stenosis. Trace aortic valve regurgitation. There is no pericardial effusion. Pulmonary artery systolic pressure is within normal limits. Right atrial pressure is around 5 mm of mercury. Nohemi Hampton MD (Electronically Signed) Final Date: 15 July 2024 16:53 S
== END 2024-07-11 13:26 | disposition home or self-care (01) ==
LOC: RAD 13:26
PROVIDERS: PCP Electrodiagnostic Medicine; Visit Provider Electrodiagnostic Medicine
DX: I50.30 Unspecified diastolic (congestive) heart failure (principal); I35.0 Nonrheumatic aortic (valve) stenosis
CPT/HCPCS: 93306

== ENCOUNTER 2024-08-15 14:50 | Outpatient (CLI) | payer MEDICARE, SELFPAY ==
--- NOTE | 2024-08-15 14:52 | MM_ITS ---
WS: [email or web address] BILATERAL 3D TOMOSYNTHESIS DIGITAL SCREENING MAMMOGRAPHY WITH CAD CLINICAL INFORMATION: SCREENING HISTORY: Screening mammogram. No current complaints. COMPARISON: 2022 TECHNIQUE: Bilateral CC and MLO views. FINDINGS: Scattered fibroglandular densities bilaterally. No suspicious focal mass, asymmetry, calcifications, or architectural distortion. No evidence of malignancy. Biopsy clip RIGHT breast. Incidental punctate and lucent centered calcifications. MM/MM scr BI tomosynthesis [id number] IMPRESSION: DENSITY: There are scattered areas of fibroglandular density. BI-RADS: 2 - Benign. FOLLOW UP: 1 Year Follow-up Recommend return to annual screening mammography.
== END 2024-08-15 14:51 | disposition home or self-care (01) ==
LOC: RAD 14:50
PROVIDERS: PCP Electrodiagnostic Medicine; Visit Provider Electrodiagnostic Medicine
DX: Z12.31 Encounter for screening mammogram for malignant neoplasm of breast (principal); R92.323 Mammographic fibroglandular density, bilateral breasts; R92.1 Mammographic calcification found on diagnostic imaging of breast
CPT/HCPCS: 77063; 77067

== ENCOUNTER → 2024-10-04 08:19 | Outpatient (BNVA) | payer MEDICARE, SELFPAY | PROVIDERS: PCP Electrodiagnostic Medicine; Visit Provider Podiatrist Foot & Ankle Surgery | DX: L60.0 Ingrowing nail (principal); M79.671 Pain in right foot; E11.9 Type 2 diabetes mellitus without complications | CPT/HCPCS: 99213 ==

== ENCOUNTER → 2025-01-25 09:33 | Outpatient (BNVA) | payer MEDICARE, SELFPAY | PROVIDERS: PCP Electrodiagnostic Medicine; Visit Provider Podiatrist Foot & Ankle Surgery | DX: E11.69 Type 2 diabetes mellitus with other specified complication (principal); L60.0 Ingrowing nail; M79.671 Pain in right foot | CPT/HCPCS: 11720; 99213 ==

== ENCOUNTER 2025-03-20 15:33 | Outpatient (CLI) | payer MEDICARE, SELFPAY ==
--- NOTE | 2025-03-20 15:42 | CT_ITS ---
WS: [email or web address] CT ABDOMEN AND PELVIS WITH AND WITHOUT CONTRAST HISTORY: ACUTE DIVERTICULITIS TECHNIQUE: Unenhanced 5 mm axial imaging first performed through the abdomen. Post contrast imaging through the abdomen and pelvis. Oral contrast has been provided. Sagittal and coronal reformats are submitted. All CT scans at [facility] use at least one of these dose optimization techniques: automated exposure control; mA and/or kV adjustment per patient size (includes targeted exams where dose is matched to clinical indication); or iterative reconstruction. CONTRAST: Omnipaque 350; 95 mL IV. DLP: 913.90 mGy.cm COMPARISON: 12/24/2018, chest CT 09/06/2015 Lung bases are clear. Normal size heart. Small hiatal hernia. Liver and spleen are normal size. Normal portal vein. Normal gallbladder and adrenal glands. Mild pancreatic atrophy. No pancreatic duct or common bile duct dilatation. Mild atherosclerosis aorta. No aneurysm. 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 SMA is well opacified. Hypoplastic celiac axis is not an acute finding. No renal obstruction or calcifications. Kidneys are normal size. Stomach is well distended with oral contrast. No small bowel obstruction. Normal appendix. Descending and sigmoid colon diverticular disease. Narrowing of the lumen. No areas of acute diverticulitis identified. There is no abscess or acute perforation. There is extensive diverticular disease. Moderate diffuse constipation. No ascites. No adenopathy. Scoliosis. L4 anterolisthesis by 6.6 mm. Advanced degenerative disc disease in the lumbar spine. Facet joint arthropathy at L4-5 and L5-S1. CT/CT abdomen pelvis wo/w [id number] IMPRESSION: 1. Advanced diverticular disease in the sigmoid colon with narrowing of the mayela men. No evidence for acute diverticulitis. There is no abscess or perforation. 2. No ascites or adenopathy. 3. No renal obstruction. 4. Normal appendix. 5. 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 No ischemic changes. 6. Moderate diffuse constipation.
[2025-03-20] MEDS: iohexol 350 mg/mL 500 mL Btl (per mL) PO (16:29)
[2025-03-20] MEDS: iohexol 350 mg/mL 500 mL Btl (per mL) IV (17:16)
== END 2025-03-20 15:34 | disposition home or self-care (01) ==
LOC: RAD 15:34
PROVIDERS: PCP Electrodiagnostic Medicine; Visit Provider Electrodiagnostic Medicine
DX: K57.30 Diverticulosis of large intestine without perforation or abscess without bleeding (principal); K59.00 Constipation, unspecified
CPT/HCPCS: 74178

== ENCOUNTER → 2025-04-26 09:54 | Outpatient (BNVA) | payer MEDICARE, SELFPAY | PROVIDERS: PCP Electrodiagnostic Medicine; Visit Provider Podiatrist Foot & Ankle Surgery | DX: E11.42 Type 2 diabetes mellitus with diabetic polyneuropathy (principal); L60.3 Nail dystrophy; L60.0 Ingrowing nail; M79.671 Pain in right foot; G62.9 Polyneuropathy, unspecified | CPT/HCPCS: 11720 ==

== ENCOUNTER → 2025-07-27 10:20 | Outpatient (BNVA) | payer MEDICARE, SELFPAY | PROVIDERS: PCP Electrodiagnostic Medicine; Visit Provider Podiatrist Foot & Ankle Surgery | DX: E11.8 Type 2 diabetes mellitus with unspecified complications (principal); L60.3 Nail dystrophy; G62.9 Polyneuropathy, unspecified; E11.42 Type 2 diabetes mellitus with diabetic polyneuropathy | CPT/HCPCS: 11721 ==